=== PATIENT | female | born 1985 | race Caucasian/White ===

== ENCOUNTER → 2018-06-11 14:21 | Outpatient (CLI) | payer MEDICAID, SELFPAY ==
[2018-06-11 14:45] LABS: D-Dimer < 100 ng/mL (0-400)
[2018-06-11 15:02] LABS: Alanine Aminotransferase 28 U/L (12-78); Albumin Level 4.2 gm/dL (3.4-5.0); Albumin/Globulin Ratio 1.4 (1.1-1.8); Alkaline Phosphatase 93 U/L (46-116); Anion Gap 14.8 mEq/L (5-15); Aspartate Amino Transferase 16 U/L (15-37); Bilirubin,Total 0.3 mg/dL (0.2-1.0); Blood Urea Nitrogen 11 mg/dL (7-18); Calcium 9.5 mg/dL (8.5-10.1); Carbon Dioxide 27 mmol/L (21.0-32.0); Chloride 100 mmol/L (98-107); Creatinine,Serum 0.58 mg/dL (0.55-1.02); Estimated Glomerular Filt Rate 118 ml/min (>60); GFR (African American) 143 ML/MIN (>60); Glucose 98 mg/dL (74-106); Potassium 3.8 mmoL/L (3.5-5.1); Sodium 138 mmol/L (136-145); Total Protein,Serum 7.2 gm/dL (6.4-8.2)
[2018-06-11 15:44] LABS: Basophils % 0.6 % (0.1-2.0); Eosinophils # 0.1 K/mm3 (0.0-0.4); Eosinophils % 1.6 % (0.1-12.0); Hemoglobin 15.6 g/dL (12.2-16.2); Lymphocytes # 2.1 K/mm3 (0.7-4.5); Lymphocytes % 37.1 % (10-50); Mean Corpuscular HGB Conc 33.8 g/dL (31.8-35.4); Mean Corpuscular Hemoglobin 34.1 pg (27.0-31.2); Mean Corpuscular Volume 100.8 fl (81-99); Mean Platelet Volume 7.6 fl (7.4-10.4); Monocytes # 0.4 K/mm3 (0.1-1.0); Monocytes % 6.3 % (1.7-9.3); Neutrophils # 3.1 K/mm3 (1.8-7.8); Neutrophils % 54.3 % (37.0-80.0); Platelet Count 180 K/mm3 (142-424); Red Blood Count 4.57 M/mm3 (4.20-5.40); Red Cell Distribution Width 13.3 % (11.5-17.5); White Blood Count 5.8 K/mm3 (4.8-10.8)
== END ==
PROVIDERS: Visit Provider Nurse Practitioner Family
DX: R06.02 Shortness of breath (principal); R07.1 Chest pain on breathing
CPT/HCPCS: 80053; 85025; 85378

== ENCOUNTER → 2018-07-30 16:35 | Outpatient (CLI) | payer MEDICAID, SELFPAY ==
--- NOTE | 2018-07-30 16:41 | XR_ITS ---
XR elbow RT min 3V HISTORY: Posterior elbow pain, fall with injury and pain ITS.REASON: right elbow pain ORDERING PHYSICIAN: Hunter Singh MD PATIENT AGE: 33 years COMPARISON: None FINDINGS: BONY STRUCTURES: No fracture or dislocation. No lytic or blastic change. Normal mineralization. SOFT TISSUES: Unremarkable. No radio opaque foreign bodies. No displaced fat pad. JOINT SPACE: Well-preserved. No significant arthritic changes evident. IMPRESSION: Negative elbow.
== END ==
PROVIDERS: PCP Internal Medicine Adolescent Medicine; Visit Provider Internal Medicine Adolescent Medicine
DX: M25.521 Pain in right elbow (principal)
CPT/HCPCS: 73080

== ENCOUNTER → 2018-09-05 12:36 | Outpatient (CLI) | payer MEDICAID, SELFPAY ==
--- NOTE | 2018-09-05 12:41 | XR_ITS ---
XR knee LT 3V HISTORY: ITS.REASON: LT MEDIAL KNEE PAIN ORDERING PHYSICIAN: Hunter Singh MD PATIENT AGE: 33 years COMPARISON: 08/27/2015 FINDINGS: No fracture or dislocation. No lytic or blastic change. Normal mineralization. No significant arthritic changes evident. There may be a small suprapatellar effusion IMPRESSION: Possible small suprapatellar effusion otherwise negative left knee
== END ==
PROVIDERS: PCP Internal Medicine Adolescent Medicine; Visit Provider Internal Medicine Adolescent Medicine
DX: M25.562 Pain in left knee (principal)
CPT/HCPCS: 73562

== ENCOUNTER → 2018-09-14 14:19 | Outpatient (CLI) | payer MEDICAID, SELFPAY ==
--- NOTE | 2018-09-14 14:26 | MR_ITS ---
MR knee LT wo con HISTORY: Left knee pain with popping and instability and swelling. Prior meniscectomy ITS.REASON: PAIN IN LEFT KNEE' ORDERING PHYSICIAN: Hunter Singh MD PATIENT AGE: 33 years Comparison: 09/05/2018, 01/21/2014 TECHNIQUE: Standard multiplanar multiecho sequences are performed without contrast. FINDINGS: The cruciate ligaments, collateral ligaments, patellar tendon, and quadriceps tendon are unremarkable. The patellar cartilage is preserved. There is a small. There is mild lateral patellar subluxation with some mild thinning of the medial patellofemoral ligament which could be related to an old injury. Minimal osteoarthritic changes of the patellofemoral joint laterally There is a small defect in the posterior aspect of the posterior horn of the medial meniscus which may be related to prior discectomy. In addition, there is an oblique linear area of increased T2 signal involving the posterior horn of the medial meniscus more anterior to the prior discectomy site near the body of the meniscus consistent with a horizontal/oblique meniscal tear. This is nondisplaced. No bone bruise. Small knee joint effusion is present. IMPRESSION: 1. There is a horizontal nondisplaced tear involving the posterior horn of the medial meniscus slightly more anterior than the meniscectomy site extending to the midportion/body of the medial meniscus. 2. Mild lateral patellar subluxation with thinning of the medial patellofemoral ligament which could be related to old injury. There is shallow trochlear groove.
== END ==
PROVIDERS: PCP Internal Medicine Adolescent Medicine; Visit Provider Internal Medicine Adolescent Medicine
DX: M25.562 Pain in left knee (principal)
CPT/HCPCS: 73721

== ENCOUNTER → 2018-11-20 11:32 | Outpatient (CLI) | payer MEDICAID, SELFPAY ==
--- NOTE | 2018-11-20 11:35 | NM_ITS ---
CARDIOLITE SPECT MYOCARDIAL PERFUSION LEXISCAN, REST AND STRESS: [facility] REVIEW QGS EF AND WALL MOTION EVALUATION: QPS - PERFUSION EVALUATION HISTORY: Chest pain, SOB, Fatigue, Tobacco use, Family history DOSE: 10.64 mCi technetium 99m mibi intravenously at rest followed by 32.5 mCi technetium 99m mibi following the intravenous ministration of 0.4 mg of Lexiscan. Resting blood pressure is 112/60. Stress blood pressure 117/63. FINDINGS: Ejection fraction is calculated to be 54%. Uniform myocardial activity at both stress and rest IMPRESSION: No scintigraphic evidence of Lexiscan-induced myocardial ischemia with normal ejection fraction normal wall motion
--- NOTE | 2018-11-20 12:22 | HMH.ITSHM ---
Current Home Medications as stated by this patient Edith Cantor or in store marketing representative. [][facility]
== END ==
PROVIDERS: PCP Internal Medicine Adolescent Medicine; Visit Provider Internal Medicine Adolescent Medicine
DX: R07.9 Chest pain, unspecified (principal)
CPT/HCPCS: 78452; 93017; A9502; J2785

== ENCOUNTER → 2019-05-17 12:47 | Outpatient (CLI) | payer OTHER, SELFPAY ==
--- NOTE | 2019-05-17 12:56 | XR_ITS ---
PROCEDURE: XR CHEST 2V CLINICAL HISTORY: ACUTE BRONCHITIS, COUGH Cough, smoker COMPARISON: CXR CHEST(2 VIEWS-NOT PORTABLE) from 01/15/2016 Chest from 11/12/2018 FINDINGS: The cardiomediastinal silhouette and pulmonary vascularity are within normal limits. The lungs are clear without infiltrates, suspicious nodules, or pleural effusions. Minimal fibrotic changes are present in the left lung base and right perihilar region. No acute bony findings. IMPRESSION: No acute findings. Dictated by: Damion Adamson MD 05/17/2019 14:34 Electronically signed by Damion Adamson MD in [place] 05/17/2019 14:34
== END ==
PROVIDERS: PCP Internal Medicine Adolescent Medicine; Visit Provider Internal Medicine Adolescent Medicine
DX: J20.9 Acute bronchitis, unspecified (principal); R05 Cough
CPT/HCPCS: 71046

== ENCOUNTER → 2019-07-12 08:41 | Outpatient (CLI) | payer OTHER, SELFPAY ==
--- NOTE | 2019-07-12 08:41 | CT_ITS ---
PROCEDURE: CT ABDOMEN PELVIS WO/W CON CLINICAL INDICATION: right flank pain Right flank pain for 3 weeks COMPARISON: ABDPELW/O CT ABD PELVIS W/O CONTRAST from 10/17/2015 TECHNIQUE: IV Contrast: 75ML OPTIRAY 350 Oral Contrast none Axial images obtained with sagittal and coronal reformats. All CT scans at the facility use one or more dose reduction, viz: automated exposure control, ma/kV adjustment per patient size (including targeted exams where dose is matched to indication, i.e. head), or iterative reconstruction technique. FINDINGS: LOWER THORAX: There are some atelectatic changes in the left lung base. ABDOMEN & PELVIS: Post cholecystectomy. The liver, spleen, adrenal glands, and pancreas have an unremarkable appearance. No renal or ureteral calculi. No hydronephrosis. No evidence of appendicitis, diverticulitis, intestinal obstruction, or free air. The patient reports having a partial hysterectomy. There is an rounded soft tissue mass in the left pelvic region measuring 3.6 cm. Pelvic ultrasound and correlation with surgical history recommended for further evaluation. No acute bony anomalies. Subarticular cystic changes are present in the acetabuli bilaterally. IMPRESSION: 1. No renal or ureteral calculi. 2. 3.6 cm soft tissue mass in the left pelvic region. There has been prior hysterectomy. This could be related to ovarian mass. Suggest pelvic ultrasound for further evaluation. Dictated by: Damion Adamson MD 07/13/2019 07:35 Electronically signed by Damion Adamson MD in [place] 07/13/2019 07:35
== END ==
PROVIDERS: PCP Internal Medicine Adolescent Medicine; Visit Provider Urology
DX: N20.0 Calculus of kidney (principal)
CPT/HCPCS: 74178; Q9967

== ENCOUNTER 2019-08-23 11:38 | Emergency (ER) | payer OTHER, SELFPAY ==
[2019-08-23 11:56] VITALS: BP 131/86; PULSE 77; RESP 17; TEMP 36.6; O2SAT 98; BMI 29.9
--- NOTE | 2019-08-23 12:08 | XR_ITS ---
PROCEDURE: XR FOREARM LT 2V CLINICAL INDICATION: dog bite Injury with pain COMPARISON: No exams were available for comparison FINDINGS: No fracture or dislocation. No lytic or blastic change. There is normal mineralization. The joint spaces are well-preserved. No significant degenerative/arthritic changes. No erosive changes evident. Other findings:No radiopaque foreign body apparent that would correspond to a tooth. There is a faint opacity in the mid aspect of the forearm laterally at 2 mm and may be due to artifact. IMPRESSION: No acute findings. Dictated by: Damion Adamson MD 08/23/2019 12:59 Electronically signed by Damion Adamson MD in [place] 08/23/2019 12:59
--- NOTE | 2019-08-23 12:08 | HMH.EDUTC ---
[facility] [place] Clinical Impression: Need for Tdap vaccination Dog bite Qualifiers: Encounter type: initial encounter Qualified Code(s): W54.0XXA - Bitten by dog, initial encounter Disposition: Home, Self-Care Condition on Discharge: Good Instructions: Tetanus, Diphtheria, Pertussis (Tdap) Vaccine, DI for Dog Bite Additional Instructions: Keep the wounds clean and dry. Follow up with your regular doctor. Take the antibiotics as directed and apply the topical antibiotics as directed. Make sure you stay in contact with the health department regarding the health of the dog. Watch the puncture wounds for signs of worsening infection, such as worsening redness, drainage, swelling, etc. GO TO THE ER FOR ANY WORSENING SYMPTOMS Prescriptions: Amoxicillin/Potassium Clav [Augmentin 875-125 Tablet] 1 tab PO Q12H 10 Days #20 tab Transmission Status: Received by [facility] Mupirocin [Bactroban 2% Ointment 22gm tube] 1 applicatio TP TID 7 Days #1 tube Transmission Status: Received by [facility] Referrals: Hunter Singh MD [Primary Care Provider] - Forms: Work/School Release Time of Disposition: 12:37 Medical Decision Making - Medical Records Medical records reviewed: No: I reviewed the patient's medical records. - Richard Inquiry Pt receiving controlled substance: No Vital Signs: 08/23/19 11:56 08/23/19 12:50 Temperature 97.9 F 97.9 F Temperature Source Oral Oral Pulse Rate 77 Pulse Rate [Right Brachial] 77 Respiratory Rate 17 17 Blood Pressure 131/86 Blood Pressure [Right Arm] 131/86 Blood Pressure Mean [Right Arm] 101 Blood Pressure Source Automatic Cuff Blood Pressure Source [Right Arm] Automatic Cuff Blood Pressure Position Sitting Blood Pressure Position [Right Arm] Sitting 02 Sat by Pulse Oximetry 98 Oxygen Delivery Method Room Air Room Air Orders (Tests/Meds): ED MEDICATIONS Discontinued Medications Generic Name Dose Route Start Last Admin Trade Name Freq PRN Reason Stop Dose Admin Tetanus/Reduced Diphtheria/Acell Pertussis 0.5 ml 08/23/19 12:56 08/23/19 13:00 Adacel Tdap 0.5ml Syringe IM 08/23/19 12:57 0.5 ml .ONCE ONE Administration - Radiology Data #1 Image(s): Forearm Image Reviewed: Yes I reviewed the patient's radiology image, Yes I have reviewed radiologist's interpretation Preliminary Findings: Normal/NAD FINDINGS: No fracture or dislocation. No lytic or blastic change. There is normal mineralization. The joint spaces are well-preserved. No significant degenerative/arthritic changes. No erosive changes evident. Other findings:No radiopaque foreign body apparent that would correspond to a tooth. There is a faint opacity in the mid aspect of the forearm laterally at 2 mm and may be due to artifact. IMPRESSION: No acute findings. [facility] [place] - General Stated complaint: left wrist dog bite Time Seen by Provider: 08/23/19 12:08 Mode of Arrival: Family Vehicle Source of Information: Patient Limitations: No Limitations Description of Symptoms (Recalled from Triage Doc. by RN): C/O DOG BITE TO LEFT ARM LAST PM. TRYING TO BREAK UP FIGHT BETWEEN HER TWO HOUSE DOGS HEENT Symptoms (Recalled from RN notes): No Resp Symptoms (Recalled from RN notes): No Skin Symptoms (Recalled from RN notes): Yes MS Symptoms (Recalled from RN notes): No Functional Status (Recalled from RN notes): N/A - History of Present Illness Provider Complaint: She states that her dog got into a fight yesterday. She broke them up, but her dog accidentily bit her on her left forearm. - Related Data Home Medications Medication Instructions Recorded Confirmed Duloxetine HCl 60 mg PO DAILY 11/12/18 08/23/19 diazePAM [Valium 2mg tablet] 2 mg PO DAILY PRN 08/23/19 08/23/19 Previous Rx's Medication Instructions Recorded Amoxicillin/Potassium Clav 1 tab PO Q12H 10 Days #20 tab 08/23/19 [Augmentin 875-125 Tablet] Mupirocin [Bactro
[2019-08-23 12:50] VITALS: BP 131/86; PULSE 77; RESP 17; TEMP 36.6; O2SAT 98
== END 2019-08-23 12:52 | disposition home or self-care (01) ==
PROVIDERS: Emergency Provider Nurse Practitioner Family; PCP Internal Medicine Adolescent Medicine
DX: S51.832A Puncture wound without foreign body of left forearm, initial encounter (principal); W54.0XXA Bitten by dog, initial encounter; Z23 Encounter for immunization; Z79.899 Other long term (current) drug therapy; Z88.1 Allergy status to other antibiotic agents; Z88.8 Allergy status to other drugs, medicaments and biological substances; Z88.2 Allergy status to sulfonamides; Z72.0 Tobacco use
CPT/HCPCS: 73090; 90471; 90715; 99201

== ENCOUNTER → 2020-03-02 10:57 | Outpatient (CLI) | payer OTHER, SELFPAY | PROVIDERS: PCP Internal Medicine Adolescent Medicine; Visit Provider Internal Medicine Adolescent Medicine | DX: Z03.818 Encounter for observation for suspected exposure to other biological agents ruled out (principal); R05 Cough | CPT/HCPCS: U0003 ==

== ENCOUNTER → 2020-12-14 07:16 | Outpatient (CLI) | payer OTHER, SELFPAY | PROVIDERS: Visit Provider Internal Medicine Adolescent Medicine | DX: Z20.822 Contact with and (suspected) exposure to COVID-19 (principal) | CPT/HCPCS: U0003 ==

== ENCOUNTER → 2021-02-15 07:54 | Outpatient (CLI) | payer OTHER, SELFPAY | PROVIDERS: Visit Provider Internal Medicine Adolescent Medicine | DX: Z20.822 Contact with and (suspected) exposure to COVID-19 (principal); R05.9 Cough, unspecified | CPT/HCPCS: C9803; U0003; U0005 ==

== ENCOUNTER 2022-05-22 17:53 | Emergency (ER) | payer OTHER, SELFPAY ==
[2022-05-22 17:54] VITALS: BP 147/86; PULSE 83; RESP 16; TEMP 36.8; O2SAT 97; BMI 33.3
[2022-05-22 18:04] VITALS: BMI 33.3
--- NOTE | 2022-05-22 18:06 | CT_ITS ---
PROCEDURE INFORMATION: Exam: CT Abdomen And Pelvis Without Contrast Exam date and time: 05/22/2022 6:19 PM Age: 37 years old Clinical indication: Abdominal pain; Flank; Right; Additional info: Stone protocol TECHNIQUE: Imaging protocol: Computed tomography of the abdomen and pelvis without contrast. Radiation optimization: All CT scans at this facility use at least one of these dose optimization techniques: automated exposure control; mA and/or kV adjustment per patient size (includes targeted exams where dose is matched to clinical indication); or iterative reconstruction. COMPARISON: CT ABDOMEN PELVIS WO/W CON 07/12/2019 9:18 AM FINDINGS: Liver: Normal. No mass. Gallbladder and bile ducts: Cholecystectomy. Pancreas: Normal. No ductal dilation. Spleen: Normal. No splenomegaly. Adrenal glands: Normal. No mass. Kidneys and ureters: Mild right hydronephrosis and ureteral dilatation but no stones in the ureter or in the bladder and these findings may indicate recent passage of a stone. Stomach and bowel: Unremarkable. No obstruction. No mucosal thickening. Appendix: No evidence of appendicitis. Intraperitoneal space: Unremarkable. No free air. No significant fluid collection. Vasculature: Unremarkable. No abdominal aortic aneurysm. Lymph nodes: Unremarkable. No enlarged lymph nodes. Urinary bladder: Unremarkable as visualized. Reproductive: Hysterectomy. Bones/joints: Unremarkable. No acute fracture. Soft tissues: Unremarkable. Other findings: . IMPRESSION: Mild right hydronephrosis and ureteral dilatation but no stones in the ureter or in the bladder and these findings may indicate recent passage of a stone.
[2022-05-22 18:09] LABS: Microscopic, Urine URINE MICROSCOPIC (MICROSCOPIC)
[2022-05-22 18:11] LABS: Appearance,Urine CLEAR (Clear); Bilirubin,Urine Negative (Negative); Blood, Urine 3+ (Negative); Color,Urine YELLOW (Yellow); Glucose,Urine (UA) Negative (Negative); Ketones,Urine Negative (Negative); Leukocyte Esterase,Urine Negative (Negative); Nitrate,Urine Negative (Negative); Protein,Urine Negative (Negative); Specific Gravity, Urine 1.015 (1.005-1.030)
[2022-05-22 18:18] LABS: Amorphous Sediment,Urine Trace /lpf
[2022-05-22 18:22] LABS: Chloride 103 mmol/L (98-107); Potassium 3.8 mmoL/L (3.5-5.1); Sodium 138 mmol/L (136-145)
--- NOTE | 2022-05-22 18:22 | PC.NURSE ---
PT BACK FROM CT
[2022-05-22 18:25] LABS: Alanine Aminotransferase 17 U/L (12-78); Albumin Level 4.4 g/dl (3.5-5.0); Albumin/Globulin Ratio 1.5 (1.1-1.8); Alkaline Phosphatase 75 U/L (38-126); Anion Gap 10.8 mEq/L (5-15); Aspartate Amino Transferase 22 U/L (14-36); Bilirubin,Total 0.3 mg/dl (0.2-1.3); Blood Urea Nitrogen 14 mg/dl (7-17); Carbon Dioxide 28 mmol/L (22.0-30.0); Creatinine Clearance Estimated 180 mL/min (50-200); Estimated Glomerular Filt Rate 111 ml/min (>60); GFR (African American) 135 ML/MIN (>60); Total Protein,Serum 7.4 g/dl (6.3-8.2)
[2022-05-22 18:26] LABS: Calcium 8.7 mg/dl (8.4-10.2); Glucose 99 mg/dl (74-100)
[2022-05-22 18:30] VITALS: BP 134/70; PULSE 83; O2SAT 95
--- NOTE | 2022-05-22 18:46 | HMH.EDGENADL ---
Discharge Plan Disposition Patient Disposition: Home, Self-Care Condition: Good Prescriptions Prescriptions: New ketorolac 10 mg tablet 10 mg PO Q6H PRN (Reason: pain) Qty: 10 0RF hydrocodone-acetaminophen 5-325 mg tablet 1 tab PO Q6H PRN (Reason: pain) Qty: 10 0RF No Action duloxetine 60 MG capsule,delayed release(DR/EC) 60 mg PO DAILY diazepam 2 MG tablet 2 mg PO DAILY PRN (Reason: Anxiety) mupirocin 22 GM ointment 1 applicatio TP TID 7 Days Qty: 1 0RF amoxicillin-pot clavulanate 1 EACH tablet 1 tab PO Q12H 10 Days Qty: 20 0RF Referrals Follow up/Referrals: Hunter Singh MD [Primary Care Provider] - See instructions Activity Restrictions/Add. Instructions Additional Instructions/Restrictions: Toradol and [place] as needed for pain. Follow-up with primary care provider, call tomorrow to make appointment. Additional instructions for CONTROLLED SUBSTANCES: You have been prescribed a medication that is a controlled substance. Controlled substances include pain medications known as opiates and sedative nerve medications known as benzodiazepines. Tramadol, fioricet, and gabapentin are also controlled substances. Some common opiates include: Codeine (such as Tylenol #3) Hydrocodone (Vicodin, Lortab, Lorcet, [place]) Oxycodone (Percocet, Percodan, Oxycodone, Oxy IR) Some common benzodiazepines include: Diazepam (Valium) Lorazepam (Ativan) Alprazolam (Xanax) Clonazepam (Klonopin) Oxazepam (Serax) All of these controlled substances are highly addictive and frequently abused. Misuse can and frequently does lead to addiction as well as overdose and . Medication should be stored in a locked cabinet or other secure storage unit. Do not store the medication in a motor vehicle. Short term supplies, 3 days or less, are prescribed because of the highly addictive nature of the medication. Any of the controlled substance medication NOT taken should be disposed of properly and NOT SAVED. The recommended method of disposing of unused medications is: Place the medicines in a sealable plastic bag. If the medicine is a solid, crush it or add water to dissolve it. Add something undesirable (cat litter, coffee grounds, etc.) Dispose of sealed bag in household trash Do not flush or pour unused medicines down a sink or drain. Controlled substances should not be shared, given away or sold. Because of the addictive nature and frequent abuse, these medications are sometimes stolen. These medications should be kept in a safe place where they cannot be stolen. Do not keep them in your car or purse. Lost or stolen prescriptions for controlled substances WILL NOT BE REFILLED in this emergency department, regardless of whether a police report was filed. Clinical Impressions Clinical Impression: Low back pain Instructions Patient Instructions: DI for Low Back Pain Discharge ED Provider: Humberto Ramírez General Adult HPI General Chief complaint: Abdominal Pain Stated complaint: BACK & RIGHT SIDE PAIN Time Seen by Provider: 05/22/22 18:38 Mode of Arrival: Ambulatory Source of Information: Patient Limitations: No Limitations Description of Symptoms (Recalled from ER Triage Doc. by RN): pt comes in with c/o back pain and right side of abdomen, down into hip and butt. symptoms began 2 weeks ago. pt did see pcp and was given a steroid shot and voltaren gel. pt states that they have not been helping. History of Present Illness HPI narrative: 2-week history of right lower back pain that radiates around to her right suprapubic area and into her right buttock. She locates the pain in her right lower lumbar area. It does not radiate down her leg. It does increase with certain positions and movements. No numbness or weakness of the legs. She does have a history of a bulging disc and thought it might be due to that, saw her primary care provider last week and was given a steroid shot and
[2022-05-22 18:59] LABS: Basophils # 0.1 K/mm3 (0-0.2); Basophils % 1.4 % (0.1-2.0); Eosinophils # 0.1 K/mm3 (0.0-0.4); Eosinophils % 1.1 % (0.1-12.0); Hematocrit 37.5 % (37.0-47.0); Hemoglobin 12.5 g/dL (12.2-16.2); Lymphocytes # 4.2 K/mm3 (0.7-4.5); Lymphocytes % 42.1 % (10-50); Mean Corpuscular HGB Conc 33.3 g/dL (31.8-35.4); Mean Corpuscular Hemoglobin 31.8 pg (27.0-31.2); Mean Corpuscular Volume 95.4 fl (81-99); Mean Platelet Volume 8.4 fl (7.4-10.4); Monocytes # 0.5 K/mm3 (0.1-1.0); Monocytes % 4.4 % (1.7-9.3); Neutrophils # 5.1 K/mm3 (1.8-7.8); Neutrophils % 51.1 % (37.0-80.0); Platelet Count 318 K/mm3 (142-424); Red Blood Count 3.93 M/mm3 (4.20-5.40); Red Cell Distribution Width 13.5 % (11.5-17.5); White Blood Count 10.1 K/mm3 (4.8-10.8)
[2022-05-22 19:00] VITALS: BP 117/69; PULSE 76; O2SAT 97
[2022-05-22 19:32] VITALS: BP 118/70; PULSE 78; RESP 18; TEMP 36.6; O2SAT 99
== END 2022-05-22 19:40 | disposition home or self-care (01) ==
PROVIDERS: Emergency Provider Emergency Medicine; PCP Internal Medicine Adolescent Medicine
DX: M54.50 Low back pain, unspecified (principal); F17.210 Nicotine dependence, cigarettes, uncomplicated
CPT/HCPCS: 74176; 80053; 81001; 85025; 96361; 96374; 96375; 99285; J2405

== ENCOUNTER → 2022-06-03 14:56 | Outpatient (CLI) | payer OTHER, SELFPAY ==
--- NOTE | 2022-06-03 15:00 | MR_ITS ---
FINAL REPORT TECHNIQUE: Multiplanar MR without contrast CLINICAL HISTORY: SACROILITIS lower back pain with bilateral numbness x 1 month FINDINGS: Sagittal images show normal vertebral height. There is minimal retrolisthesis of L4 on 5. The alignment is otherwise normal. Marrow signal pattern is unremarkable. T12-L1: Unremarkable L1-2: Unremarkable L2-3: Unremarkable L3-4: Mild annular disc bulge. L4-5: Mild annular disc bulge. L5-S1: No focal disc protrusion. Mild facet arthropathy. IMPRESSION: Mild degenerative disc changes without canal stenosis or neural foraminal compression. Reviewed, Interpreted and Dictated by Melissa Menchaca MD Transcribed by Caro Shell Authenticated and . [facility]
== END ==
PROVIDERS: PCP Internal Medicine Adolescent Medicine; Visit Provider Internal Medicine Adolescent Medicine
DX: M54.41 Lumbago with sciatica, right side (principal); M46.1 Sacroiliitis, not elsewhere classified
CPT/HCPCS: 72148; 76376

== ENCOUNTER → 2022-07-12 07:43 | Outpatient (CLI) | payer OTHER, SELFPAY ==
--- NOTE | 2022-07-12 07:43 | US_ITS ---
FINAL REPORT CLINICAL HISTORY: pelvic pain FINDINGS: Transvaginal sonographic images of the pelvis were obtained. The uterus is surgically absent. The right ovary measures 2.4 cm in length and left ovary measures 3.5 cm in length. Normal blood flow seen to the ovaries. Small follicles are present. There is no evidence of free fluid. IMPRESSION: Absent uterus. Reviewed, Interpreted and Dictated by Giovani Nuno III, MD Transcribed by Gustavo Toussaint Authenticated and [facility]
[2022-07-12 08:52] LABS: Thyroid Stimulating Hormone 3.58 uIU/mL (0.465-4.68)
[2022-07-13 08:15] LABS: Estradiol 48.7 pg/mL (.); FSH 6.5 mIU/mL (.)
== END ==
PROVIDERS: PCP Internal Medicine Adolescent Medicine; Visit Provider Obstetrics & Gynecology
DX: R10.2 Pelvic and perineal pain (principal)
CPT/HCPCS: 36415; 76830; 82670; 83001; 84443

== ENCOUNTER 2022-09-22 12:05 | Emergency (ER) | payer OTHER, SELFPAY ==
[2022-09-22] VITALS (7 sets, daily range): BP systolic 104–131; BP diastolic 57–81; PULSE 62–79; RESP 12–18; TEMP 37.1; O2SAT 96–98; BMI 31.4
--- NOTE | 2022-09-22 12:05 | ECG_ITS ---
APPROVED REPORT Exam: Resting ECG HR:75 bpm ECG Measurements Heart Rate 75 AXES IN 141 P 63 QRSd 100 QRS 47 QT 390 T 50 QTc 420 Conclusion SINUS RHYTHM LOW QRS VOLTAGE IN PRECORDIAL LEADS [QRS DEFLECTION < 1.0 mV IN CHEST LEADS] BORDERLINE ECG UNCONFIRMED REPORT Electronically signed by : Hunter Singh MD 09/22/2022 21:38:04
--- NOTE | 2022-09-22 12:33 | XR_ITS ---
FINAL REPORT CLINICAL HISTORY: chest pain COMPARISON: 11/12/2018 FINDINGS: SINGLE-VIEW CHEST The heart size is normal. The mediastinum is normal. The lungs are clear. There is no pneumothorax. IMPRESSION: No acute cardiopulmonary process. Reviewed, Interpreted and Dictated by Giovani Nuno III, MD Transcribed by Caro Shell Authenticated and [facility]
[2022-09-22 12:40] LABS: Chloride 98 mmol/L (98-107); Potassium 3.7 mmoL/L (3.5-5.1); Sodium 137 mmol/L (136-145)
[2022-09-22 12:41] LABS: Basophils # 0.1 K/mm3 (0-0.2); Eosinophils # 0.1 K/mm3 (0.0-0.4); Hemoglobin 13.4 g/dL (12.2-16.2); Lymphocytes # 3.1 K/mm3 (0.7-4.5); Lymphocytes % 34.1 % (10-50); Mean Corpuscular HGB Conc 33.4 g/dL (31.8-35.4); Mean Corpuscular Hemoglobin 32.6 pg (27.0-31.2); Mean Corpuscular Volume 97.4 fl (81-99); Mean Platelet Volume 8.2 fl (7.4-10.4); Monocytes # 0.5 K/mm3 (0.1-1.0); Monocytes % 5.7 % (1.7-9.3); Neutrophils # 5.2 K/mm3 (1.8-7.8); Neutrophils % 58.2 % (37.0-80.0); Platelet Count 297 K/mm3 (142-424); Red Blood Count 4.11 M/mm3 (4.20-5.40); Red Cell Distribution Width 13.3 % (11.5-17.5)
[2022-09-22 12:43] LABS: Alanine Aminotransferase 22 U/L (12-78); Albumin Level 4.3 g/dl (3.5-5.0); Albumin/Globulin Ratio 1.6 (1.1-1.8); Alkaline Phosphatase 76 U/L (38-126); Anion Gap 14.7 mEq/L (5-15); Aspartate Amino Transferase 26 U/L (14-36); Blood Urea Nitrogen 11 mg/dl (7-17); Calcium 8.8 mg/dl (8.4-10.2); Carbon Dioxide 28 mmol/L (22.0-30.0); Creatinine Clearance Estimated 176 mL/min (50-200); Estimated Glomerular Filt Rate 111 ml/min (>60); GFR (African American) 135 ML/MIN (>60); Globulin 2.7 g/dL (1.3-3.2); Glucose 120 mg/dl (74-100)
[2022-09-22 12:45] LABS: Bilirubin,Total 0.1 mg/dl (0.2-1.3)
[2022-09-22 12:58] LABS: Troponin I < 0.01 ng/ml (0.00-0.034)
[2022-09-22 13:24] LABS: Appearance,Urine CLEAR (Clear); Bilirubin,Urine Negative (Negative); Blood, Urine 2+ (Negative); Color,Urine YELLOW (Yellow); Glucose,Urine (UA) Negative (Negative); Ketones,Urine Negative (Negative); Leukocyte Esterase,Urine Negative (Negative); Microscopic, Urine URINE MICROSCOPIC (MICROSCOPIC); Nitrate,Urine Negative (Negative); PH,Urine 6.5 (5.0-8.5); Protein,Urine Negative (Negative); Specific Gravity, Urine <= 1.005 (1.005-1.030); Urobilinogen,Urine 0.2 EU/dl (0.2)
--- NOTE | 2022-09-22 14:14 | HMH.EDGENADL ---
Discharge Plan Disposition Patient Disposition: Home, Self-Care Condition: Good Chief Complaint: Chest Pain Prescriptions Prescriptions: No Action duloxetine 60 MG capsule,delayed release(DR/EC) 60 mg PO DAILY Referrals Follow up/Referrals: Hunter Singh MD [Primary Care Provider] - See instructions Clinical Impressions Clinical Impression: Chest pain Instructions Patient Instructions: DI for Atypical Chest Pain Print Language Print Language: Liberian Discharge ED Provider: Héctor Fu General Adult HPI General Chief complaint: Chest Pain Stated complaint: CHEST PAIN Time Seen by Provider: 09/22/22 14:19 Mode of Arrival: Ambulatory Source of Information: Patient Limitations: No Limitations Description of Symptoms (Recalled from ER Triage Doc. by RN): Patient arrived POV to ED with compaints of intermittent sharp midsternal chest pain that radiates to the left arm. Patient states pain has been going on for the past few weeks. Denies alliviated or precepitating factors. No cardiac hx. History of Present Illness HPI narrative: Patient presents to the emergency department with chest pain. She states is waxing and waning for the last 2 weeks. She states that it is mostly left-sided radiating into the left shoulder. Denies any fever, chills, cough, congestion, nausea or vomiting. The patient states that it would last from a few seconds to a few minutes at a time. Describes associated shortness of breath. Denies any previous history of similar symptoms. Related Data Home Medications Medication Instructions Recorded Confirmed duloxetine 60 mg capsule,delayed 60 mg PO DAILY Depression 11/12/18 06/27/22 release Allergies Allergy/AdvReac Type Severity Reaction Status Date / Time Sulfa (Sulfonamide Allergy Intermediate I-HIVES Verified 06/27/22 13:07 Antibiotics) [SULFA (SULFONAMIDE ANTIBIOTICS)] erythromycin base Allergy Unknown NA-NAUSEA/V Verified 06/27/22 13:07 [ERYTHROMYCIN BASE] OMITING metoclopramide [From REGLAN] Allergy Unknown TARDIVE Verified 06/27/22 13:07 [facility]IA [facility] Disclaimer: The information contained in this section may have been updated after the patient was seen, as this information can be updated by other users. Medical History No active medical problems Pelvic pain Surgical History History of carpal tunnel surgery History of endometrial ablation History of hysterectomy for benign disease Hx of cholecystectomy Hx of knee surgery Hx of tubal ligation Family History Mother Cancer Social History Smoking Status: Unknown if ever smoked alcohol intake: current substance use type: denies use current occupational status: employed Travel in the last 8 weeks: None household members: spouse and children housing: house ROS Obtained: Yes All systems reviewed & no additional complaints except as documented Cardiovascular Cardiovascular: Reports chest pain Respiratory Respiratory: Reports shortness of breath Physical Exam General General appearance: alert and in no apparent distress Head Head exam: atraumatic and normocephalic Eye Eye exam: Present normal appearance, PERRL and EOMI Chest Chest inspection: Present normal inspection and symmetric chest wall rise Respiratory Respiratory exam: Present normal lung sounds bilaterally Cardiovascular Cardiovascular exam: Present regular rate, normal rhythm and normal heart sounds Abdominal Exam Abdominal exam: Present soft and normal bowel sounds Extremities Exam Extremities exam: Present normal inspection and full ROM Neurological Exam Neurological exam: Present alert and oriented X3 Psychiatric Psychiatric exam: Present normal affect and normal mood S
== END 2022-09-22 14:32 | disposition home or self-care (01) ==
PROVIDERS: Emergency Provider Emergency Medicine; PCP Internal Medicine Adolescent Medicine
DX: R07.9 Chest pain, unspecified (principal); M79.602 Pain in left arm
CPT/HCPCS: 71045; 80053; 81001; 84484; 85025; 93005; 99285

== ENCOUNTER 2024-05-21 09:03 | Outpatient (CLI) | payer OTHER, SELFPAY ==
--- NOTE | 2024-05-21 09:07 | US_ITS ---
PROCEDURE: US TRANSVAGINAL CLINICAL INDICATION: RLQ, LLQ PAIN COMPARISON: CT CT ABDOMEN PELVIS WO/W CON from 07/12/[address] ABDOMEN PELVIS WO CON from 05/22/2022 US US TRANSVAGINAL from 07/12/2022 FINDINGS: Transvaginal sonographic images of the pelvis were obtained. UTERUS: The uterus is surgically absent. The vaginal cuff appears intact. The right ovary is at the top of the vaginal cuff. LEFT OVARY: 3.0cmx1.8 cmx1.8cm with a volume of 5.1ml. There are multiple small follicles. There is a small echogenic area within the left ovary. RIGHT OVARY: 4.1cmx 2.6 cmx2.2 cm with a volume of 12.2ml. There are multiple small follicles. Both ovaries are seen and appear normal. Doppler flow to both ovaries are seen. There is no fluid in the cul-de-sac. IMPRESSION: 1. The uterus is surgically absent. The vaginal cuff appears intact. 2. Both ovaries are seen and appear normal. The right ovary appears to be at the top of the vaginal vault. 3. No fluid in the cul-de-sac. Dictated by: Korey Sow MD 05/21/2024 11:19 Korey Sow MD in [place] 05/21/2024 11:19
== END 2024-05-21 23:59 | disposition home or self-care (01) ==
LOC: RAD 09:04
PROVIDERS: PCP Internal Medicine Adolescent Medicine; Visit Provider Internal Medicine Adolescent Medicine
DX: R10.31 Right lower quadrant pain (principal); R10.32 Left lower quadrant pain
CPT/HCPCS: 76830

== ENCOUNTER 2024-06-05 13:57 | Emergency (ER) | payer OTHER, SELFPAY ==
[2024-06-05 13:57] VITALS: BP 132/83; PULSE 88; RESP 16; TEMP 36.9; O2SAT 99; BMI 33.3
--- NOTE | 2024-06-05 14:01 | ED_ITS ---
<Statement entered by Ally Gonzalez MD - 06/07/24 06:53> I was consulted by the GERARD, and we discussed the complexity of problems being addressed. I approved the treatment and management plan for this patient's care in the emergency department, thus performing a substantive portion of the medical decision making. Ally Gonzalez MD Discharge Plan Disposition Patient Disposition: Home, Self-Care Condition: Good Prescriptions Prescriptions: New methocarbamol 750 mg tablet 750 mg PO Q6H PRN (Reason: muscle spasm) Qty: 20 0RF prednisone 50 mg tablet 50 mg PO DAILY 5 Days Qty: 5 0RF lidocaine 5 % adhesive patch,medicated 1 patch topical DAILY Qty: 30 0RF Rx Instructions: leave on most painful area for up to 12 hrs No Action duloxetine 60 MG capsule,delayed release(DR/EC) 60 mg PO DAILY amitriptyline 50 mg tablet 50 mg PO HS Activity Restrictions/Add. Instructions Additional Instructions/Restrictions: You need to follow-up with your PCP to get an outpatient MRI on a nonemergent basis. You have significant lumbar disc disease. I have sent prescription to your pharmacy to help with your symptomatic pain. If you have any increasing numbness weakness loss of motor or sensory return to the emergency department for reevaluation. Clinical Impressions Clinical Impression: Acute low back pain with sciatica Qualifiers: Back pain laterality: bilateral Sciatica laterality: sciatica of left side Q ualified Code(s): M54.42 - Lumbago with sciatica, left side Degenerative disc disease, lumbar Qualifiers: Disc-related pain type: discogenic back pain and lower extremity pain Qualified Code(s): M51.362 - Other intervertebral disc degeneration, lumbar region with discogenic back pain and lower extremity pain Instructions Patient Instructions: DI for Low Back Pain Print Language Print Language: Palestinian Discharge ED Provider: Ally Gonzalez General Adult HPI General Chief complaint: Back Pain/Injury Stated complaint: back pain Time Seen by Provider: 06/05/24 14:01 History of Present Illness HPI narrative: Patient presents for evaluation of a back injury. Patient was taking her dog to the vet and after she sat him down she attempted to raise up and felt a sharp pain in her lumbar area. She then felt pain rating down both legs. She was able to walk and attempted to drive her self to the hospital. However when she got out of the car the pain caused her knees to buckle. She did not actually suffer an injury and was ultimately able to ambulate into the ER. She denies any numbness or tingling distally but reports pain radiating down both hips laterally. She denies any saddle anesthesia loss of bowel or bladder. She does have a known history of degenerative disc disease and had an MRI approximately 15 years ago but has never had back surgery. She denies chest pain fever chills hemoptysis hematochezia melena nausea vomit diarrhea. Related Data Home Medications ?Medication ?Instructions ?Recorded ?Confirmed duloxetine 60 mg capsule,delayed 60 mg PO DAILY Depression 11/12/18 06/05/24 release amitriptyline 50 mg tablet 50 mg PO HS 06/05/24 06/05/24 Previous Rx's ?Medication ?Instructions ?Recorded lidocaine 5 % topical patch 1 patch topical DAILY #30 ea 06/05/24 methocarbamol 750 mg tablet 750 mg PO Q6H PRN muscle spasm #20 06/05/24 tabs prednisone 50 mg tablet 50 mg PO DAILY 5 days #5 tabs 06/05/24 Allergies Allergy/AdvReac Type Severity Reaction Status Date / Time Sulfa (Sulfonamide Allergy Intermediate I-HIVES Verified 06/05/24 14:34 Antibiotics) (SULFA (SULFONAMIDE ANTIBIOTICS)) erythromycin base Allergy Unknown NA-NAUSEA/V Verified 06/05/24 14:34 (ERYTHROMYCIN BASE) OMITING metoclopramide (From REGLAN) Allergy Unknown TARDIVE Verified 06/05/24 14:34 [facility] Disclaimer: The information contained in this section may have been updated after the patient was seen, as this information can be updated by other users. Medical History No active medical problems Pelvic pain Surgical History History of carpal tunnel surgery History of endometrial ablation History of hysterectomy for benign disease Hx of cholecystectomy Hx of knee surgery Hx of tubal ligation Family History Mother Cancer Social History (Updated 06/05/24 @ 14:36 by Nu Richard RN) Smoking Status: Former smoker tobacco type: cigarettes packs per day: 1 alcohol intake: current alcohol intake frequency: holidays/special occasions only substance use type: denies use current occupational status: employed Travel in the last 8 weeks: None household members: spouse and children housing: house Contact w/someone who lives/traveled outside [place] past 30 days?: No Exposure to someone with infectious disease in past 14 days?: No Do you have a fever (greater than 100.4 F or 38 C)?: No Have you tested positive for COVID-19: No Exposed to someone with COVID-19 in past 14 days?: No Do you have a sore throat?: No Do you have a cough?: No Do you have any weakness?: No Are you experiencing any nausea/vomitting?: No Do you have any diarrhea?: No Are you experiencing any unusual bleeding?: No Do you have any muscle aches/pain?: No Do you have any abdominal pain?: No Are you experiencing loss of taste or smell?: No Other Medical History Have you received the Flu Vaccine for this season: No Have you received the Pneumonia Vaccine: No ROS Obtained: Yes Systems reviewed as appropriate & no additional complaints except as documented Physical Exam General General appearance: alert and in no apparent distress Respiratory Respiratory exam: Present normal lung sounds bilaterally Cardiovascular Cardiovascular exam: Present regular rate Neurological Exam Neurological exam: Present alert, oriented X3 and CN II-XII intact; Absent normal gait (Antalgic gait) or motor sensory deficit Medical Decision Making Medical Records Medical records reviewed: Yes I reviewed the patient's medical records. Screening: Per USPSTF and CDC recommendations, given the prevalence of disease in our region, it is our hospital?s policy to screen for HIV and viral Hepatitis for all patients aged 18 and over and those with ongoing risk factors. Richard Inquiry Pt receiving controlled substance: No Vital Signs: 06/05/24 13:57 06/05/24 14:30 06/05/24 16:19 Temperature 98.5 F 98.5 F Temperature Source Oral Pulse Rate 83 80 Pulse Rate [Radial] 88 Respiratory Rate 16 20 Blood Pressure 118/61 115/60 Blood Pressure [Right Arm] 132/83 Blood Pressure Mean [Right Arm] 99 Blood Pressure Source [Right Arm] Automatic Cuff Blood Pressure Position [Right Arm] Sitting 02 Sat by Pulse Oximetry 99 97 Oxygen Delivery Method Room Air Room Air Room Air Lab Data Lab results reviewed: Yes I reviewed the patient's lab results. Lab Results 06/05/24 14:05: WBC 9.7, RBC 3.66 L, Hgb 11.8 L, Hct 34.8 L, MCV 95.1, MCH 32.2 H, MCHC 33.9, RDW 12.6, Plt Count 271, MPV 9.6, Neut % (Auto) 55.1, Lymph % (Auto) 35.4, [place] % (Auto) 7.7, Eos % (Auto) 0.9, Baso % (Auto) 0.7, Neut # (Auto) 5.3, Lymph # (Auto) 3.4, [place] # (Auto) 0.7, Eos # (Auto) 0.1, Baso # (Auto) 0.1, Sodium 137, Potassium 4.3, Chloride 102, Carbon Dioxide 27, Anion Gap 12.3, BUN 13, Creatinine 0.60, Estimated Creat Clear 177, Estimated GFR 110, Est GFR ( Amer) 133, Glucose 97, Calcium 8.8, HCV Ab LUBA w/Rflx PCR Qn Negative, HIV Ag/Ab Combo Qual Negative 06/05/24 14:05 06/05/24 14:05 Orders (Tests/Meds): ED MEDICATIONS Discontinued Medications Generic Name Dose Route Start Last Admin Trade Name Arturq PRN Reason Stop Dose Admin Acetaminophen 1,000 mg 06/05/24 14:12 06/05/24 14:37 Acetaminophen 1,000mg/100ml Vial IV 06/05/24 14:13 1,000 mg ONCE ONE Administration Dexamethasone Sodium Phosphate 10 mg 06/05/24 14:12 06/05/24 14:48 Dexamethasone 4mg/Ml 5ml Mdv IV 06/05/24 14:13 10 mg ONCE ONE Administration Diphenhydramine HCl 50 mg 06/05/24 14:12 06/05/24 14:49 Diphenhydramine 50mg/Ml Vial IV 06/05/24 14:13 50 mg ONCE ONE Administration Ketorolac Tromethamine 15 mg 06/05/24 14:12 06/05/24 14:36 Ketorolac 30mg/Ml Vial IV 06/05/24 14:13 15 mg ONCE ONE Administration Lidocaine 1 each 06/05/24 14:16 06/05/24 14:48 Lidocaine 5% Transdermal Patch TP 06/05/24 14:17 1 each ONCE ONE Administration Methocarbamol 500 mg 06/05/24 14:12 06/05/24 14:48 Methocarbamol 500mg Tablet PO 06/05/24 14:13 500 mg ONCE ONE Administration Oxycodone HCl 5 mg 06/05/24 15:45 06/05/24 16:05 Oxycodone 5mg Immediate Release Tablet PO 06/05/24 15:46 5 mg ONCE ONE Administration ORDERS Category Date Time Status CT bony pelvis Stat Cat Scan 06/05/24 14:[address] lumbar spine wo con Stat Cat Scan 06/05/24 14:12 Completed BMP [Basic Metabolic Panel] Stat Lab 06/05/24 14:05 Completed CBC w/Auto Diff [Complete Blood Count Auto Diff] Stat Lab 06/05/24 14:05 Completed HIV Combo Stat Lab 06/05/24 14:05 Completed Hepatitis C Ab Qual. W/ RFX Stat Lab 06/05/24 14:05 Completed Medical Decision Narrative: In summary patient is a 39-year-old female who presents to the emergency department for evaluation of low back injury. Patient is hemodynamically stable upon arrival, afebrile. Physical exam is remarkable for tenderness to palpation in the paraspinous musculature of the bilateral lumbar spine with mild midline tenderness in the lumbar spine but no palpable bony deformity. Patient is neurovascularly intact distally in her bilateral extremities and has nonpainful right lower extremity straight leg raise however is unable to perform left straight leg raise due to pain in her low back.. Differential diagnosis includes muscle strain versus disc protrusion versus occult fracture etc. Initial workup will be conducted with CT scan of the lumbar spine and pelvis hematologic labs. Initial interventions include Lidoderm patch Toradol acetaminophen Robaxin Benadryl Decadron. Initial workup reviewed by me and her hematologic labs are nonactionable and my informal interpretation of her imaging shows a midline disc protrusion at L4-L5 with potential canal compromise otherwise no acute other bony imaging abnormalities. Upon repeat evaluation had near complete resolution of her constitutional symptoms after initial intervention and was able to ambulate in the ER with a normal gait. Given this patient is appropriate for discharge with referral back to PCP for outpatient MRI and referral to spine surgeon. Patient given strict return precautions she was given a prescription for Lidoderm Robaxin and a steroid Dosepak. Critical Care Critical Care Time Critical Care Time: No
--- NOTE | 2024-06-05 14:12 | CT_ITS ---
FINAL REPORT TECHNIQUE: Axial images through the pelvis were performed by computed tomography. Reformatted images were obtained and reviewed. This study was performed with techniques to keep radiation doses as low as reasonably achievable, (ALARA). Individualized dose reduction techniques using automated exposure control or adjustment of mA and/or kV according to the patient's size were employed. CLINICAL HISTORY: Acute low back pain with radiculopathy FINDINGS: The hip joint spaces are well-preserved. The femoral heads demonstrate a normal smooth contour. There is cyst formation in the superior acetabuli bilaterally, left greater than right. Cysts measure up to 10 mm on the left. The superior and inferior pubic rami are intact. IMPRESSION: Cyst formation in the acetabuli bilaterally with preserved joint space. These are not believed to be degenerative cysts. Reviewed, Interpreted and Dictated by Hasmukh Mckee MD Transcribed by Caro Shell Authenticated and [facility]
--- NOTE | 2024-06-05 14:12 | CT_ITS ---
FINAL REPORT TECHNIQUE: Axial images were obtained of the lumbar spine by computed tomography. Coronal and sagittal reconstruction process performed. This study was performed with techniques to keep radiation doses as low as reasonably achievable (ALARA). Individualized dose reduction techniques using automated exposure control or adjustment of mA and/or kV according to the patient''s size were employed. CLINICAL HISTORY: Acute back pain with radiculopathy FINDINGS: Lumbar vertebrae show normal height. Disc spaces are well-preserved. There is no malalignment. The facets are properly aligned. L1-2: No significant canal stenosis or neuroforaminal narrowing. L2-3: No significant canal stenosis or neuroforaminal narrowing. L3-4: No significant canal stenosis or neuroforaminal narrowing. L4-5: Broad-based midline disc protrusion with moderate spinal canal compromise. L5-S1: No significant canal stenosis or neuroforaminal narrowing. IMPRESSION: Broad-based midline disc protrusion at L4-5 with moderate spinal canal compromise. MRI may be of value to better visualize the soft tissue structures. Reviewed, Interpreted and Dictated by Hasmukh Mckee MD Transcribed by Caro Shell Authenticated and [facility]
[2024-06-05 14:19] LABS: Basophils # 0.1 K/mm3 (0-0.2); Basophils % 0.7 % (0.1-2.0); Eosinophils # 0.1 K/mm3 (0.0-0.4); Eosinophils % 0.9 % (0.1-12.0); Hematocrit 34.8 % (37.0-47.0); Hemoglobin 11.8 g/dL (12.2-16.2); Lymphocytes # 3.4 K/mm3 (0.7-4.5); Lymphocytes % 35.4 % (10-50); Mean Corpuscular HGB Conc 33.9 g/dL (31.8-35.4); Mean Corpuscular Hemoglobin 32.2 pg (27.0-31.2); Mean Corpuscular Volume 95.1 fl (81-99); Mean Platelet Volume 9.6 fl (7.4-10.4); Monocytes # 0.7 K/mm3 (0.1-1.0); Monocytes % 7.7 % (1.7-9.3); Neutrophils # 5.3 K/mm3 (1.8-7.8); Neutrophils % 55.1 % (37.0-80.0); Platelet Count 271 K/mm3 (142-424); Red Blood Count 3.66 M/mm3 (4.20-5.40); Red Cell Distribution Width 12.6 % (11.5-17.5); White Blood Count 9.7 K/mm3 (4.8-10.8)
[2024-06-05 14:26] LABS: Chloride 102 mmol/L (98-107); Potassium 4.3 mmoL/L (3.5-5.1); Sodium 137 mmol/L (136-145)
[2024-06-05 14:29] LABS: Anion Gap 12.3 mEq/L (5-15); Blood Urea Nitrogen 13 mg/dl (7-17); Calcium 8.8 mg/dl (8.4-10.2); Carbon Dioxide 27 mmol/L (22.0-30.0); Creatinine Clearance Estimated 177 mL/min (50-200); Estimated Glomerular Filt Rate 110 ml/min (>60); GFR (African American) 133 ML/MIN (>60); Glucose 97 mg/dl (74-100)
[2024-06-05 14:30] VITALS: BP 118/61; PULSE 83; O2SAT 97
[2024-06-05] MEDS: KETOROLAC 30MG/ML VIAL 15 MG IV (14:36)
[2024-06-05] MEDS: ACETAMINOPHEN 1,000MG/100ML VIAL 1000 MG IV (14:37)
--- NOTE | 2024-06-05 14:37 | PC.NURSE ---
PT TO RADIOLOGY
[2024-06-05] MEDS: METHOCARBAMOL 500MG TABLET 500 MG PO (14:48)
[2024-06-05] MEDS: LIDOCAINE 5% TRANSDERMAL PATCH 1 EACH TP (14:48)
[2024-06-05] MEDS: DEXAMETHASONE 4MG/ML 5ML MDV 10 MG IV (14:48)
[2024-06-05] MEDS: diphenhydrAMINE 50MG/ML VIAL 50 MG IV (14:49)
--- NOTE | 2024-06-05 15:05 | PC.NURSE ---
assisted pt back to bed, pt reports that she is comfortable and she is relaxed
[2024-06-05 15:24] LABS: HIV Combo NEGATIVE (Negative)
--- NOTE | 2024-06-05 15:25 | PC.NURSE ---
ROUNDED ON PT, SITTING UP IN BED. REPORTS NO CHANGE IN PAIN
[2024-06-05 15:32] LABS: Hepatitis C Ab Qual. W/ RFX NEGATIVE (Negative)
--- NOTE | 2024-06-05 15:57 | PC.NURSE ---
PT AMBULATORY TO AND FROM [facility]
[2024-06-05] MEDS: OXYCODONE 5MG IMMEDIATE RELEASE TABLET 5 MG PO (16:05)
[2024-06-05 16:19] VITALS: BP 115/60; PULSE 80; RESP 20; TEMP 36.9; O2SAT 98
== END 2024-06-05 16:20 | disposition home or self-care (01) ==
PROVIDERS: Physician Assistant; Emergency Provider Student in an Organized Health Care Education/Training Program; PCP Internal Medicine Adolescent Medicine
DX: M51.362 Other intervertebral disc degeneration, lumbar region with discogenic back pain and lower extremity pain (principal); F17.210 Nicotine dependence, cigarettes, uncomplicated
CPT/HCPCS: 72131; 72192; 80048; 85025; 86803; 87389; 96374; 96375; 99284; J0131; J1100; J1200; J1885